=== PATIENT | male | born 1950 | race Caucasian/White ===

== ENCOUNTER 2021-03-18 12:17 | Observation (INO) ==
[2021-03-18] MEDS ORDERED: 0.9 % Sodium Chloride 1,000 ML IVC ONE (12:44)
[2021-03-18 13:02] LABS: Basophils # 0.1 K/mcL (0.0-0.2); Eosinophils # 0.6 K/mcL (0.0-0.6); Eosinophils % 6.8 %; Hematocrit 42.4 % (37.5-50.1); Hemoglobin 13.8 g/dL (12.9-16.9); Immature Granulocytes % 0.9 % (0-4); Lymphocytes # 1.4 K/mcL (0.6-4.6); Lymphocytes % 14.9 %; Mean Corpuscular HGB Conc 32.5 g/dL (31.6-35.5); Mean Corpuscular Volume 95.3 fL (83.0-100.0); Monocytes # 0.7 K/mcL (0.0-1.3); Monocytes % 7.7 %; Neutrophils # 6.3 K/mcL (1.6-8.9); Platelet Count 301 K/mcL (140-400); Red Blood Count 4.45 M/mcL (4.19-5.50); Segmented Neutrophils % 68.7 %; White Blood Count 9.1 K/mcL (4.3-11.1)
[2021-03-18 13:09] LABS: INR 1.1; Prothrombin Time 11.8 Seconds (9.4-12.1)
[2021-03-18 13:12] LABS: Activated Partial Thrombo Time 32.5 Seconds (26.0-36.0)
[2021-03-18 13:28] LABS: BUN/Creatinine Ratio 16 (6-26); Blood Urea Nitrogen 28 mg/dL (8-23); Calcium 10.4 mg/dL (8.6-10.3); Carbon Dioxide 25 mEq/L (23-29); Chloride 106 mEq/L (98-107); Creatine Kinase 233 Units/L (30-223); Glucose 115 mg/dL (70-105); Osmolality,Calculated 298 (280-300); Potassium 4.2 mEq/L (3.5-5.1); Sodium 141 mEq/L (136-145); Troponin I < 0.03 ng/mL (< 0.04); eGFR For African Americans 48 (> 60); eGFR For Non-African Americans 40 (> 60)
[2021-03-18 13:40] LABS: Bilirubin,Urine Negative (Negative); Blood,Urine Negative (Negative); Calcium Oxalate Crystals,Urine Present per hpf; Clarity,Urine Turbid (Clear); Color,Urine Yellow (Yellow); Glucose,Urine (UA) Normal (Normal); Hyaline Casts,Urine Moderate per lpf (None Seen); Ketones,Urine Trace mg/dL (Negative); Leukocyte Esterase,Urine Negative (Negative); Mucus,Urine Few per lpf (None-Few); Nitrite,Urine Negative (Negative); PH,Urine 5.5 pH Units (5.0-8.0); Protein,Urine 30 mg/dL (Neg-Trace); Specific Gravity,Urine > 1.030 (1.010-1.025); Squamous Epithelial Cell,Urine Few per hpf (None-Few)
[2021-03-18] MEDS ORDERED: Naloxone 0.4 MG/ML INJ IVP PRN (15:02)
[2021-03-18] MEDS ORDERED: Mag Hydrox/Al Hydrox/Simeth 30 ML UDC PO PRN (15:02)
[2021-03-18] MEDS ORDERED: Ondansetron ODT 4 MG TAB.RAPDIS SL PRN (15:02)
[2021-03-18] MEDS ORDERED: Melatonin 3 MG TABLET PO PRN (15:02)
[2021-03-18] MEDS ORDERED: Perflutren Lipid Microsphere 1.3 ML in 0.9 % Sodium Chloride 8.7 ML IVP PRN (15:04)
[2021-03-18 16:49] LABS: Adenovirus Not Detected (Not Detect); Bordetella Pertussis Not Detected (Not Detect); Chlamydophila pneumoniae Not Detected (Not Detect); Coronavirus 229E Not Detected (Not Detect); Coronavirus HKU1 Not Detected (Not Detect); Coronavirus NL63 Not Detected (Not Detect); Coronavirus OC43 Not Detected (Not Detect); Human Metapneumovirus Not Detected (Not Detect); Human Rhinovirus/Enterovirus Not Detected (Not Detect); Influenza A Subtype 2009 H1 Not Detected (Not Detect); Influenza B Not Detected (Not Detect); Mycoplasma pneumoniae Not Detected (Not Detect); Parainfluenza Virus 1 Not Detected (Not Detect); Parainfluenza Virus 2 Not Detected (Not Detect); Parainfluenza Virus 3 Not Detected (Not Detect); Parainfluenza Virus 4 Not Detected (Not Detect); Respiratory Syncytial Virus Not Detected (Not Detect); SARS-CoV-2 Not Detected (Not Detect)
[2021-03-18 16:57] LABS: Phosphorous 2.6 mg/dL (2.7-4.5)
[2021-03-18] MEDS: 0.9 % Sodium Chloride 1,000 ML IVC SCH (18:32)
[2021-03-19 01:04] LABS: Hematocrit 37.7 % (37.5-50.1); Mean Corpuscular HGB Conc 32.1 g/dL (31.6-35.5); Mean Corpuscular Hemoglobin 30.4 pg (28.0-33.3); Mean Corpuscular Volume 94.7 fL (83.0-100.0); Platelet Count 275 K/mcL (140-400); Red Blood Count 3.98 M/mcL (4.19-5.50)
[2021-03-19 01:06] LABS: Hemoglobin 12.1 g/dL (12.9-16.9)
[2021-03-19 01:14] LABS: Calcium 8.9 mg/dL (8.6-10.3); Potassium 4.1 mEq/L (3.5-5.1)
[2021-03-19] MEDS: 0.9 % Sodium Chloride 1,000 ML IVC SCH (04:39)
[2021-03-19 08:22] VITALS: BP 167/93; PULSE 72; TEMP 98.3; O2SAT 93
[2021-03-19] MEDS ORDERED: allopurinoL 100 MG TABLET PO SCH (09:00)
== END 2021-03-19 10:40 | disposition home or self-care (01) ==
LOC: EMEROOARM 12:17 → 3BNU 12:17 → SUATTDRO 15:02 → 3BNU 16:48
PROVIDERS: ADMIT Family Medicine; ATTEND Family Medicine